=== PATIENT | male | born 1955 | race Caucasian/White ===

== ENCOUNTER 2016-12-27 13:00 | Outpatient (RCR) | payer MEDICARE, SELFPAY | END 2016-12-27 17:00 | LOC: PT.CARL 13:00 | PROVIDERS: Referring Provider Orthopaedic Surgery; Visit Provider Orthopaedic Surgery | DX: M16.11 Unilateral primary osteoarthritis, right hip (principal); Z96.641 Presence of right artificial hip joint | CPT/HCPCS: G8978; G8979; G8980; 97010; 97110; 97161 ==